=== PATIENT | female | born 1985 | race Caucasian/White ===

== ENCOUNTER 2025-04-14 17:17 | Emergency (ER) | payer SELFPAY ==
[~2025-04-14] VITALS: Wt 129.3 kg
[2025-04-14] MEDS ORDERED: METHOCARBAMOL 750 MG TAB PO ONE (19:10)
[2025-04-14] MEDS ORDERED: METHOCARBAMOL750 M1 PO (21:29)
== END 2025-04-14 21:42 | disposition home or self-care (01) ==
LOC: ED 17:17
DX: S80.01XA Contusion of right knee, initial encounter (principal); S60.211A Contusion of right wrist, initial encounter; M54.6 Pain in thoracic spine; W20.8XXA Other cause of strike by thrown, projected or falling object, initial encounter; Y93.89 Activity, other specified; Y92.89 Other specified places as the place of occurrence of the external cause; Y99.8 Other external cause status